=== PATIENT | female | born 1985 | race Caucasian/White ===

== ENCOUNTER → 2020-01-28 11:31 | Outpatient (BNVA) | payer SELFPAY | PROVIDERS: Family Provider Family Medicine; PCP Family Medicine; Visit Provider Nurse Practitioner Family | DX: J06.9 Acute upper respiratory infection, unspecified (principal) | CPT/HCPCS: 87635 ==

== ENCOUNTER → 2024-01-12 16:19 | Outpatient (BNVA) | payer BC, MEDICAID, SELFPAY | PROVIDERS: Family Provider Family Medicine; PCP Family Medicine; Visit Provider Emergency Medicine | DX: Z20.2 Contact with and (suspected) exposure to infections with a predominantly sexual mode of transmission (principal) | CPT/HCPCS: 87491; 87591 ==

== ENCOUNTER 2024-12-11 21:15 | Emergency (ER) | payer BC, MEDICAID, SELFPAY ==
--- OUTSIDE RECORDS SUMMARY | 2024-12-11 21:22 | XMS_ITS | Encounter Summary ---
Author Organization [facility] Address [address] [place] [address] Care Team Providers Care General Medical Practitioner Name Role Phone Shira Putnam MD Primary Care Provider [phone] Encounter Details Date Type Department Care Team (Late st Contact Info) Description 06/02/[address] 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
--- OUTSIDE RECORDS SUMMARY | 2024-12-11 21:22 | XMS_ITS | Encounter Summary ---
Author Organization [facility] Address [address] [place] [address] Care Team Providers Care Grinding Mill Operator Name Role Phone Shira Putnam MD Primary Care Provider [phone] Encounter Details Date Type Department Care Team (Late st Contact Info) Description 06/01/2007 Outpatient Historical [address] [phone] Brian Funes, DO [address] [place] [phone] Social History Tobacco Use Types Packs/Day Years Used Date Smoking Tobacco: Never Assessed Comments Unknown Sex and Gender Information Value Date Recorded Sex Assigned at Not on file 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
--- OUTSIDE RECORDS SUMMARY | 2024-12-11 21:22 | XMS_ITS | Encounter Summary ---
Author Organization [email or web address] Address [address] [place] [address] Care Team Providers Care General Store Manager Name Role Phone Shira Putnam MD Primary Care Provider [phone] Encounter Details Date Type Department Care Team (Latest Contact Info) Description 02/08/2007 Outpatient Historical [facility] HEAD OF OPERATION AND LOGISTICS, Family Medicine and Maternal- Medicine 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
--- OUTSIDE RECORDS SUMMARY | 2024-12-11 21:23 | XMS_ITS | Clinical Summary ---
Author Organization [facility] Address [address] [place] [address] Care Team Providers Care Merchant Banker Name Role Phone Shira Putnam MD Primary Care Provider Allergies No known active allergies Medications HYDROcodone-nitish taminophen (NORCO) 5-325 mg tablet Take 1 Tablet by mouth every 4 hours as needed for Pain. Max Daily Amount: 6 Tablets 4 Tablet 8 Active traMADoL (ULTRAM) 50 mg tabletIndicatio ns:Pyelonephrit is Take 2 Tablets (100 mg) by mouth every 6 hours as needed for Pain. Do not drive or operate equipment while using this medication. 16 Tablet 0 Active Active Problems Problem Noted Date Diagnosed Date Hospice care patient 09/11/2019 Choledocholithiasis with chr onic cholecystitis s/p lap sreekanth with IOC 11/07/2013 11/07/2013 Hepatitis C antibody test positive 11/06/2013 Obesity 11/06/2013 Bradycardia 11/06/2013 Morbid obesity 06/20/2013 Tobacco smoking complicating 4 Contraceptive management 09/11/2012 Headache(784.0) 09/11/2012 Resolved Problems Problem Noted Date Diagnosed Date Resolved Date Biliary colic 11/06/2013 12/31/2013 Elevated LFTs 11/06/2013 12/31/2013 Gall stones 11/06/2013 12/31/2013 Abnormal maternal glucose to lerance, antepartum 06/28/2013 07/16/2013 Supervision of other normal 06/20/2013 09/09/2013 Insufficient care 06/20/2013 0 09/09/2013 Constipation 09/11/2012 12/31/2013 Immunizations Immunization Administration Dates Next Due (ADACEL/BOOSTRIX)(10 YR UP) TDAP VACCINE, 0.5ML, IM 07/24/2013,01/07/2011 Influenza Vaccine Split 3+ Yrs PF IM 07/24/2013 Family History Medical History Relation Name Comments Healthy Brother Healthy Father Breast Cancer Maternal Grandmother Diabetes Maternal Grandmother Healthy Mother Healthy Paternal Grandfather Healthy Paternal Grandmother Healthy Sister Relation Name Status Comments Brother Father Maternal Grandmother Mother Paternal Grandfather Paternal Grandmother Sister Social History Tobacco Use Types Packs/Day Years Used Date Smoking Tobacco: Every Day Cigarettes 0.3 8 Smokeless Tobacco: Never Tobacco Cessation:Ready to Q uit: No; Counseling Given: Yes Alcohol Use Standard Drinks/Week Comments No 0 (1 standard drink = 0.6 oz pur e alcohol) Comments No Sex and Gender Information Value Date Recorded Sex Assigned at Not on file Legal Sex Female 6:48 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 Gender Identity Not on file Sexual Orientation Not on file Occupation Industry Job Start Date Job End Date Not on file Not on file Not on file Not on file Last Filed Vital Signs Vital Sign Reading Time Taken Comments Blood Pressure 125/64 09/11/2019 11:09 PM CDT Pulse 103 09/11/2019 9:57 PM CDT Temperature 36.7 C (98.1 F) 09/11/2019 11:09 PM CDT Respiratory Rate 18 09/11/2019 11:0 9 PM CDT Oxygen Saturation 99% 09/11/2019 11: 09 PM CDT Inhaled Oxygen Concentration - - Weight 108.8 kg (239 lb 12.8 oz) 09/11/2019 6:44 PM CDT Height 165.1 cm (5' 5 ) 09/11/2019 6:44 PM CDT Body Mass Index 39.9 09/11/2019 6:44 PM CDT Plan of Treatment Health Maintenance Due Date Last Done Comments HEPATITIS B VACCINES (1 of 3 - 19+ 3-dose series) 2003 Pre-Diabetes and Diabetes Screening 07/09/2016 07/09/2013, 07/09/2013, 07/09/2013, Additional history exists DTAP/TDAP/TD VACCINES (3 - Td or Tdap) 07/24/2023 07/24/2013, 01/07/2011 INFLUENZA VACCINE (#1) 2024 07/24/2013 HPV VACCINES Aged Out No longer eligi ble based on patient's age to complete this topic Procedures Procedure Name Priority Date/Time Associated Diagnosis Comments GLUCOSE TOLERANCE, 1 HR Routine 07/09/2013 9:03 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 Supervision of other normal Morbid obesity (CMS/HCC) Abnormal maternal glucose tolerance, antepartum from Last 3 Months or Most Recently Relevant to Health Maintenance Results * GLUCOSE TOLERANCE, 1 HR (07/09/2013 9:03 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) GLUCOSE, 1HR 188 mg/dL 07/09/2013 9:25 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 [employer] [facility] Blood specimen (specimen) Venipuncture - Lab Collect / Unknown 07/09/2013 9:03 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 07/09/2013 9:05 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 Naman Gillespie MD CHEMISTRY ORDERABLES Final Resul t [employer] [facility] CLIA # [id number] [address] [place] [address] from Last 3 Months or Most Recently Relevant to Health Maintenance Insurance [place]ICAID [place] Advance Directives For more information, please contact: [phone] * Full Code (Latest Code Status on File) Date Activated Date Inactivated Comments 11/07/2013 2:55 PM 11/08/2013 3:39 PM * Full Code Date Activated Date Inactivated Comments 11/06/2013 9:07 PM 11/07/2013 2:55 PM * Full Code Date Activated Date Inactivated Comments 07/22/2013 3:34 PM 07/24/2013 2:43 PM * Full Code Date Activated Date Inactivated Comments 07/22/2013 1:01 PM 07/22/2013 3:34 PM Care Teams Merchant Banker Relationship Specialty Start Date End Date Shira Putnam MD [address] [phone] PCP - General Family Practice 05/01/18
[2024-12-11 21:28] VITALS: BP 128/86; PULSE 90; RESP 17; TEMP 36.7; O2SAT 97; BMI 40.3
--- NOTE | 2024-12-11 21:32 | ECG_ITS ---
[facility] Test Date: 2024-12-11 Pat Name: [facility] Department: Room: Gender: Female Guest Services Lead: : 1985 Requested By: Tesfaye Loving Order Number: [id number] Garcia MD: Sarah Monroe M.D. Measurements Intervals [place] Rate: 86 P: 54 [place]: 145 QRS: 21 QRSD: 84 T: -1 QT: 346 QTc: 415 Interpretive Statements SINUS RHYTHM No previous ECG available for comparison Electronically Signed On 12-14-2024 14:14:30 CDT by Sarah Monroe M.D. [id number]
[2024-12-11 22:29] LABS: Hematocrit 48.3 % (36-47); Hemoglobin 15.70 g/dL (11.27-16.99); Mean Corpuscular HGB Conc 32.5 g/dL (30-55); Mean Corpuscular Hemoglobin 31.7 pg (27-33); Mean Corpuscular Volume 97.6 fl (85-98); Nucleated Red Blood Cells % 0 %; Platelet Count 290 10^3/cmm (157-399); Red Blood Count 4.95 10^6/uL (3.85-5.65); White Blood Count 12.82 10^3/uL (3.29-11.43)
[2024-12-11 22:37] LABS: Troponin(5th) Baseline < 6 ng/L (0-10)
[2024-12-11 23:08] LABS: Alanine Aminotransferase 21 U/L (0-33); Albumin Level 3.9 g/dL (3.5-5.2); Alkaline Phosphatase 121 U/L (35-105); Anion Gap 17.4 (5-19); Aspartate Amino Transferase 16 U/L (0-32); Blood Urea Nitrogen 17 mg/dL (6-20); Calcium 9.7 mg/dL (8.5-10.5); Carbon Dioxide 21 mmol/L (22-29); Chloride 103 mmol/L (98-107); Creatinine Clr Calc Pharmacy 111.3524; Globulin 3.6 g/dL (1.3-4.6); Glucose 86 mg/dL (65-115); Osmolality Calculated 285 mOsm/kg (285-295); Potassium 4.4 mmol/L (3.5-5.1); Sodium 137 mmol/L (136-145); Total Protein 7.5 g/dL (6.6-8.7)
--- NOTE | 2024-12-11 23:43 | ECG_ITS ---
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
[2024-12-12 00:52] LABS: Troponin 5 2HR < 6.0 ng/L (0-10); Troponin 5 2HR Delta 0 ABS# (0-10)
[2024-12-12 01:21] VITALS: BP 119/89; PULSE 80; O2SAT 98
--- NOTE | 2024-12-12 03:29 | ED_ITS ---
HPI - Chest Pain 2 General: Chief Complaint: Chest Pain Stated Complaint: CP knot in middle of chest N/V Time Seen by Provider: 12/12/24 01:04 History of Present Illness: 39-yo F with a history of intermittent h eartburn from a small mid-epigastric hernia presented to the ED for new substernal squeezing chest pain that began yesterday. At approximately 0500 today she awoke with central chest tightness radiating slightly to the left, described as ?the whole chest ciaran.? Pain worsened after a nap around 1700, triggering a single episode of emesis. She denies prior cardiac disease. Associated symptoms include nausea, one episode of vomiting, sensation of head ?cloudiness,? and intermittent left eye twitching. No current chest pain at time of evaluation. She reports being generally healthy but overweight, lives with her children, and came at her brother?s insistence. ROS otherwise negative for dyspnea, diaphoresis, or recurrent emesis. Related Data Previous Rx's ?Medication ?Instructions ?Recorded azithromycin 500 mg tablet 1,000 mg (2 x 500 mg) PO ON CE #2 01/12/24 (Zithromax) tabs metronidazole 500 mg tablet 2,000 mg (4 x 500 mg) PO O NCE #4 01/12/24 tabs Allergies Allergy/AdvReac Type Severity Reaction Status Date / Time No Known Allergies Allergy Verified 12/11/24 21:35 [facility] PFSH: Social History Smoking and tobacco/nicotine status: unknown if used tobacco/nicotine Physical Exam 2 Const: COMMON NORMALS: no acute distress, patient oriented x3 and alert HENMT: COMMON NORMALS: normocephalic and atraumatic HEAD & SCALP: n ormocephalic and atraumatic Eye: COMMON NORMALS: Equal, round and reactive pupils present, EOMs intact bilaterally and no scleral icterus PUPIL: Yes Equal, round and reactive pupils present Chest: OTHER: Chest pain not reproducible with palpation or deep inspiration Resp: COMMON NORMALS: normal respiratory effort and No retractions Cardio: COMMON NORMALS: regular rate, regular rhythm and No murmurs present (Cardio) RATE: regular rate RHYTHM: regular rhythm GI: COMMON NORMALS: Normal to inspection, nondistended, normoactive bowel sounds present, Soft to palpation and non-tender PALPATION: Yes Soft to palpation Neuro: COMMON NORMALS: patient oriented x3 SENSORIUM/ORIENTATION: Yes alert Skin: COMMON NORMALS: no rashes or lesions noted GENERAL SKIN EXAM: no rashes or lesions noted Course 2 Vital Signs: Vital signs: Vital Signs Temperature 98.1 F 12/11/24 21:28 Pulse Rate 80 12/12/24 01:21 Respiratory Rate 17 12/11/24 21:28 Blood Pressure 119/89 12/12/24 01:21 Pulse Oximetry 98 12/12/24 01:21 Oxygen Delivery Me thod Room Air 12/12/24 01:21 MDM - Chest Pain Medical Decision Making In summary, patient is a generally well-appearing 3-year-old female seen for chest pain, nausea, and vomiting. Pain is atypical and EKG and troponin x 2 and lab work are all reassuring. I do not suspect ACS, PE, or any other emergent process warranting further workup. I do suspect viral process likely causing stomach irritation and vomiting. She will be discharged home in stable and improved condition with follow-up primary care as needed. Lab Data 12/11/24 22:10 12/11/24 22:10 Laboratory Results WBC 12.82 10^3/uL (3.29-11.43) H 12/11/24 22:10 RBC 4.95 10^6/uL (3.85-5.65) 12/11/24 22:10 Hgb 15.70 g/dL (11.27-16.99) 12/11/24 22:10 Hct 48.3 % (36-47) H 12/11/24 22:10 MCV 97.6 fl (85-98) 12/11/24 22:10 MCH 31.7 pg (27-33) 12/11/24 22:10 MCHC 32.5 g/dL (30-55) 12/11/24 22:10 RDW 13.2 % (12.1-15.1) 12/11/24 22:10 Plt Count 290 10^3/cmm (157-399) 12/11/24 22:10 MPV 10.9 fL (7.4-10.4) H 12/11/24 22:10 Neut % (Auto) 54.7 % 12/11/24 22:10 Lymph % (Auto) 35.8 % 12/11/24 22:10 [place] % (Auto) 6.3 % 12/11/24 22:10 Eos % (Auto) 2.4 % 12/11/24 22:10 Baso % (Auto) 0.3 % 12/11/24 22:10 Neut # (Auto) 7.01 10^3/uL (1.8-7.7) 12/11/24 22:10 Lymph # (Auto) 4.6 10^3/uL (0.8-4.8) 12/11/24 22:10 [place] # (Auto) 0.8 10^3/uL (0.2-0.9) 12/11/24 22:10 Eos # (Auto) 0.3 10^3/uL (0.0-0.8) 12/11/24 22:10 Baso # (Auto) 0.0 10^3/uL (0.0-0.1) 12/11/24 22:10 Nucleated RBC % (auto) 0 % 12/11/24 22:10 Nucleated RBCs # 0.0 /100WBC 12/11/24 22:10 Sodium 137 mmol/L (136-145) 12/11/24 22:10 Potassium 4.4 mmol/L (3.5-5.1) 12/11/24 22:10 Chloride 103 mmol/L (98-107) 12/11/24 22:10 Carbon Dioxide 21 mmol/L (22-29) L 12/11/24 22:10 Anion Gap 17.4 (5-19) 12/11/24 22:10 BUN 17 mg/dL (6-20) 12/11/24 22:10 Creatinine 0.8 mg/dL (0.5-0.9) 12/11/24 22:10 GFR Calculation 79.4 mL/min (90-130) L 12/11/24 22:10 Glucose 86 mg/dL (65-115) 12/11/24 22:10 Calculated Osmolality 285 mOsm/kg (285-295) 12/11/24 22:10 Calcium 9.7 mg/dL (8.5-10.5) 12/11/24 22:10 Total Bilirubin 0.2 mg/dL (0.15-1.2) 12/11/24 22:10 AST 16 U/L (0-32) 12/11/24 22:10 ALT 21 U/L (0-33) 12/11/24 22:10 Alkaline Phosphatase 121 U/L (35-105) H 12/11/24 22:10 Troponin T Baseline < 6 ng/L (0-10) 12/11/24 22:10 Troponin T 120 Minute < 6.0 ng/L (0-10) 12/12/24 00:19 Delta Troponin T 0 ABS# (0-10) 12/12/24 00:19 Total Protein 7.5 g/dL (6.6-8.7) 12/11/24 22:10 Albumin 3.9 g/dL (3.5-5.2) 12/11/24 22:10 Globulin 3.6 g/dL (1.3-4.6) 12/11/24 22:10 No radiology studies performed this visit EKG Data EKG 1: Interpretation: Time?0102?sinus rhythm, rate of 73, no ST segment elevation or depression, no T wave versions, intervals within normal limits. QTc = 401 Discharge Plan Discharge Patient Disposition: Home Clinical Impression: Chest pain, Nausea & vomiting Condition: Stable Prescriptions: No Action metronidazole 500 mg tablet 2,000 mg PO ONCE Qty: 4 0RF azithromycin [Zithromax] 500 mg tablet 1,000 mg PO ONCE Qty: 2 0RF Discharge Orders: Discharge ED (Routine); Ordered 12/12/24 Ordered By: Tesfaye Funes Referrals: Shira Putnam MD [Primary Care Provider, [facility]] Discharge Diet: Advance as tolerated Discharge Activity: Increase activity as tolerated Patient Instructions: Chest Pain - Noncardiac, Patient Portal & Merary Instructions Print Language: Congolese Coding Level of Care Code ED Repairer Auto Clocks for Chg Ang
== END 2024-12-12 01:50 | disposition home or self-care (01) ==
PROVIDERS: Emergency Provider Student in an Organized Health Care Education/Training Program; Family Provider Family Medicine; PCP Family Medicine
DX: R07.89 Other chest pain (principal); R11.2 Nausea with vomiting, unspecified
CPT/HCPCS: 36415; 80053; 84484; 85025; 93005; 99284